=== PATIENT | male | born 1995 | race Caucasian/White ===

== ENCOUNTER 2016-10-09 18:29 | Emergency (ER) | payer OTHER ==
[~2016-10-09] VITALS: Ht 175.3 cm; Wt 63.6 kg
[~2016-10-09 18:29] MED LIST: ALBUTEROL S2.5 MG/.5 IN; PREDNISONE20 MG OR
[2016-10-09] MEDS ORDERED: NAPROSYN500 MG PO (20:27)
[2016-10-09] MEDS ORDERED: ZPAK PO (20:33)
[2016-10-09 20:50] VITALS: BP 124/70
== END 2016-10-09 20:50 | disposition home or self-care (01) | DRG 552 ==
LOC: ED 18:29
DX: S16.1XXA Strain of muscle, fascia and tendon at neck level, initial encounter (principal); S09.90XA Unspecified injury of head, initial encounter; J32.9 Chronic sinusitis, unspecified; J02.9 Acute pharyngitis, unspecified; V53.5XXA Driver of pick-up truck or van injured in collision with car, pick-up truck or van in traffic accident, initial encounter; Y92.413 State road as the place of occurrence of the external cause